=== PATIENT | female | born 1990 | race African-American/Black ===

== ENCOUNTER 2022-03-04 11:30 | Emergency (ER) | payer MEDICAID, OTHER ==
[~2022-03-04] VITALS: Ht 167.6 cm; Wt 64.0 kg
[2022-03-04 11:43] VITALS: BP 130/90
[2022-03-04 13:02] LABS: HEMATOCRIT. 37.6 % (36.0-48.0); HEMOGLOBIN. 12.6 g/dL (12.0-16.0); MEAN CORPUSCULAR HEMOGLOBIN 31.2 pg (28.0-32.0); MEAN PLATELET VOLUME 8.7 fl (7.4-10.4); PLATELET 246 x1000/uL (130-400); RED BLOOD CELL COUNT 4.05 mill/uL (4.2-5.4); RED CELL DISTRIBUTION WIDTH 14.2 % (11.6-14.6)
[2022-03-04 13:18] LABS: CHLORIDE 109 mEq/L (98-107)
[2022-03-04 13:19] LABS: HCG SCREEN NEGATIVE
[2022-03-04 13:22] LABS: PLATELET ESTIMATE NORMAL
== END 2022-03-04 17:22 | disposition left against medical advice (07) ==
LOC: ER 11:54
DX: Z53.21 Procedure and treatment not carried out due to patient leaving prior to being seen by health care provider (principal)
CPT/HCPCS: 36415; 80053; 84703; 85025; 99283

== ENCOUNTER 2022-04-08 18:56 | Emergency (ER) | payer MEDICAID ==
[~2022-04-08] VITALS: Ht 162.6 cm; Wt 59.0 kg
[2022-04-08] MEDS ORDERED: ACETAMINOPHEN 325MG TABLET PO STA (20:19)
[2022-04-08 20:53] LABS: HEMATOCRIT. 36.2 % (36.0-48.0); MEAN CORPUSCULAR VOLUME 93.6 fL (81.0-99.0); MEAN PLATELET VOLUME 8.8 fl (7.4-10.4); PLATELET 199 x1000/uL (130-400); RED BLOOD CELL COUNT 3.87 mill/uL (4.2-5.4); RED CELL DISTRIBUTION WIDTH 14.5 % (11.6-14.6)
[2022-04-08 21:04] LABS: CHLORIDE 106 mEq/L (98-107)
[2022-04-08 21:41] LABS: HCG SCREEN NEGATIVE
[2022-04-08 21:46] LABS: PLATELET ESTIMATE NORMAL
[2022-04-08 21:54] LABS: CLARITY URINE CLEAR (CLEAR); COLOR URINE YELLOW (YELLOW); KETONES URINE NEGATIVE (NEGATIVE); LEUKOCYTE ESTERASE URINE NEGATIVE (NEGATIVE); NITRITE URINE NEGATIVE (NEGATIVE); OCCULT BLOOD URINE 3+ (NEGATIVE); PH URINE 7.5 (4.5-8.0); PROTEIN URINE NEGATIVE (NEGATIVE); SPECIFIC GRAVITY URINE 1.004 (1.005-1.030); UROBILINOGEN URINE 0.2 E.U./dL (0.2-1.0)
[2022-04-09 01:00] VITALS: BP 132/72
== END 2022-04-09 02:04 | disposition home or self-care (01) ==
LOC: ER 18:56
DX: U07.1 COVID-19 (principal); R56.9 Unspecified convulsions; D72.819 Decreased white blood cell count, unspecified; D72.825 Bandemia; F32.A Depression, unspecified; M32.9 Systemic lupus erythematosus, unspecified
CPT/HCPCS: 36415; 70450; 71045; 80048; 80076; 81003; 83605; 84145; 84703; 85025; 87040; 87086; 87426; 93005; 99285; C9803